=== PATIENT | female | born 1970 | race Caucasian/White ===

== ENCOUNTER → 2016-09-16 | Outpatient (CLI) | payer OTHER | LOC: CIMAGING 10:18 | PROVIDERS: ATTEND Obstetrics & Gynecology | DX: Z12.31 Encounter for screening mammogram for malignant neoplasm of breast (principal) | CPT/HCPCS: G0202 ==

== ENCOUNTER → 2017-09-15 | Outpatient (CLI) | payer OTHER | LOC: CIMAGING 09:29 | PROVIDERS: ATTEND Obstetrics & Gynecology | DX: Z12.31 Encounter for screening mammogram for malignant neoplasm of breast (principal) ==

== ENCOUNTER 2017-09-26 17:36 | Emergency (ER) | payer OTHER ==
--- NOTE | 2017-09-26 18:10 | CPEKG ---
Heart Rate: 75 RR Interval: 800 P-R Interval: 164 QRSD Interval: 76 QT Interval: 376 QTC Interval: 420 P [place]: 62 QRS [place]: 23 T Wave [place]: 46 EKG Severity - NORMAL ECG - EKG Impression: SINUS RHYTHM Electronically Signed By: Trena Briceño 26-Sep-2017 23:02:52
--- NOTE | 2017-09-26 18:12 | EDPHY ---
H & P Stated Complaint: R CP/ANXIOUS SENT FROM TO R/O PE Time Seen by Provider: 09/26/17 18:00 HPI/ROS: CHIEF COMPLAINT: Chest pain, anxiety, elevated d-dimer HISTORY OF PRESENT ILLNESS: This is a 47 y/o female with a history of anxiety arriving at the recommendation of her PCP for PE rule out because an elevated d- dimer and chest pain. She had a panic attack last night and treated it ultimately with Xanax, which allowed her to sleep. While at work today, she started to get an "awareness" in her chest and abdomen. She says this is "a sensation not a pain. It moves around and boone feels like a gas bubble." Once she noticed this sensation, she began to worry something was wrong and saw her PCP, who performed a d-dimer lab test and found it elevated. Due to the elevated d-dimer, her chest discomfort, control use, and recent traveling , she was referred here for PE rule out. The patient says, "I know I've had bad anxiety in the past and it causes phantom pain." She denies leg or calf pain, dyspnea. No family history of VTE. REVIEW OF SYSTEMS: A ten point review of systems was performed and is negative with the exception of the items mentioned in the HPI. Past medical history: Anxiety, panic attacks - CBD oil, 5HT, Xanax Past surgical history: Noncontributory Family history: Noncontributory Social history: at bedside. Employed. PCP: Dr. Daley General Appearance: Alert. Vital signs reviewed. Blood pressure 141/95, heart rate 104 at triage. Eyes: Pupils equal and round, no conjunctival injection, no discharge. Anicteric. ENT, Mouth: Mucous membranes are moist, no oropharyngeal erythema or edema. Neck: No lymphadenopathy, supple. Respiratory: Lungs are clear to auscultation; no wheezes, rales, or rhonchi. Cardiovascular: Regular rate and rhythm; no murmur, rub, or gallop. Not tachycardic at the time of my exam. Gastrointestinal: Abdomen is soft and nontender, no masses or organomegaly. Skin: Warm and dry, no rashes on exposed skin, normal color. Back: Nontender to palpation over the thoracolumbar spine. No CVAT. Extremities: No lower extremity edema, no calf tenderness or swelling. Neurological: Alert and oriented. Moving all four extremities easily and equally. Psychiatric: Normal affect. - Personal History LMP (Females 10-55): 15-21 Days Ago Current Tetanus/Diphtheria Vaccine: No - Medical/Surgical History Hx Asthma: No Hx Chronic Respiratory Disease: No Hx Diabetes: No Hx Cardiac Disease: No Hx Renal Disease: No Hx Cirrhosis: No Hx Alcoholism: No Hx HIV/AIDS: No Hx Splenectomy or Spleen Trauma: No Other PMH: ANXIETY - Social History Smoking Status: Never smoked Constitutional: Initial Vital Signs Temperature (C) 36.8 C 09/26/17 17:40 Heart Rate 104 H 09/26/17 17:40 Respiratory Rate 20 09/26/17 17:40 Blood Pressure 141/95 H 09/26/17 17:40 O2 Sat (%) 99 09/26/17 17:40 O2 Delivery Mode Room Air Allergies/Adverse Reactions: codeine [Codeine] Adverse Reaction (Verified 09/26/17 17:40) Vomiting Home Medications: Medication Instructions Recorded Control 03/19/13 Xanax 09/26/17 Medical Decision Making - Diagnostics Imaging: Discussed imaging studies w/ chemical dependency counselor Radiologist, I viewed and interpreted images myself ED Course/Re-evaluation: This is a healthy 47 y/o female who presents for PE rule out with anxiety, chest pain, recent travel, and an elevated d-dimer at an outpatient lab today. Exam is unremarkable. Patient suspects symptoms are related to her anxiety and her panic attack last night, but is concerned about worst case scenario. Plan for ISTAT, EKG, and chest CTA. The 12 lead EKG was interpreted by myself. Sinus mechanism rate 75. See hard copy and/or "tracemaster" electronic copy for interpretation. CTA is negative. Reassessed patient and discussed results. She has anxiety medications available at home and has several resources in place to help her manage this as an outpatient. She will be discharged home with standard care and follow up instructions. Return precautions discussed. She is comfortable with discharge plan. Differential Diagnosis: I considered a differential diagnosis that includes but is not limited to ACS, PE, pneumonia or other pulmonary infection, pneumothorax, pericarditis, and anxiety. - Data Points Point of Care Test Results: Chemistry 09/26/17 18:15 POC Sodium 142 mEq/L mEq/L (135-145) POC Potassium 3.2 mEq/L L mEq/L (3.3-5.0) POC Chloride 105 mEq/L mEq/L (97-110) POC BUN 9 mg/dL mg/dL (7-23) POC Creatinine 0.7 mg/dL mg/dL (0.6-1.0) POC Glucose 96 mg/dL mg/dL (70-100) ISTAT H&H 09/26/17 18:15 POC Hgb 15.3 gm/dL gm/dL (12.6-16.3) POC Hct 45 % % (38-47) Departure - Departure Disposition: Home, Routine, Self-Care Clinical Impression: Anxiety Condition: Good Instructions: Anxiety (ED) Additional Instructions: Use home medications as prescribed for anxiety. Follow up with mental health resources and your primary care provider as needed. Return to the ED for worsening of condition. Referrals: Cassandra Daley MD [Primary Care Provider] - As per Instructions Report Scribed for: Trena Briceño Report Scribed by: Noelle Suh Date of Report: 09/26/17 Time of Report: 18:13 Physician Review and Approval Statement: 09/28/17 19:35 Portions of this note were transcribed by the emergency medical service coordinator. I, Dr. Trena Briceño, personally performed the history, physical exam, and medical decision- making; and confirmed the accuracy of the information in the transcribed note.
[2017-09-26] MEDS ORDERED: IOPAMIDOL (ISOVUE 370) 100 ML BTL IV ONE (18:51)
[2017-09-26 20:11] VITALS: BP 135/92
== END 2017-09-26 20:10 | disposition home or self-care (01) ==
DX: F41.9 Anxiety disorder, unspecified (principal)
CPT/HCPCS: 82435-PO; 82565-PO; 82947-PO; 84132-PO; 84295-PO; 84520-PO; 85014-PO; Q9967

== ENCOUNTER → 2018-09-20 | Outpatient (CLI) | payer OTHER | LOC: CIMAGING 10:53 ==